=== PATIENT | female | born 1965 | race Caucasian/White ===

== ENCOUNTER 2021-07-18 04:25 | Day surgery (SDC) | payer BC, OTHER ==
[2021-07-17 11:04] VITALS: BMI 31.3
[2021-07-18] MEDS ORDERED: LIDOCAINE HCL 1%, 10 MG/ML (20ML VIAL) ONE (07:14)
[2021-07-18] MEDS ORDERED: DEXAMETHASONE SOD PHOSPHATE 10 MG/1 ML VIAL ONE (07:14)
[2021-07-18] MEDS ORDERED: BUPIVACAINE HCL/PF 0.5% (5MG/ML) 10 ML VIAL ONE (07:14)
[2021-07-18] MEDS ORDERED: GENTAMICIN SO4 80 MG/2 ML VIAL ONE (07:17)
[2021-07-18] MEDS ORDERED: MIDAZOLAM HCL 2 MG/2 ML SINGLE DOSE VIAL ONE (07:36)
[2021-07-18] MEDS ORDERED: ceFAZolin 2 GRAM PREMIX BAG IVPB ONE (07:53)
[2021-07-18] MEDS ORDERED: LIDOCAINE HCL 1%, 10 MG/ML (20ML VIAL) INF ONE (07:58)
[2021-07-18] MEDS ORDERED: BUPIVACAINE HCL/PF 0.5% (5MG/ML) 10 ML VIAL IJ ONE ×2 (07:58→08:11)
[2021-07-18] MEDS ORDERED: DEXAMETHASONE SOD PHOSPHATE 4 MG/1 ML VIAL IVPUSH ONE (08:12)
[2021-07-18] MEDS ORDERED: GENTAMICIN SO4 80 MG/2 ML VIAL IVPB ONE (08:49)
[2021-07-18] MEDS ORDERED: ONDANSETRON 4 MG/2 ML VIAL IVPUSH PRN (09:12)
[2021-07-18] MEDS ORDERED: oxyCODONE HCL 5 MG TABLET PO PRN ×2 (09:12)
[2021-07-18] MEDS ORDERED: ACETAMINOPHEN 1000 MG/100 ML BAG IVPB PRN (09:13)
[2021-07-18] MEDS ORDERED: LACTATED RINGERS SOLUTION 1,000 ML IV SCH (09:15)
[2021-07-18] MEDS ORDERED: ACETAMINOPHEN INJECTION 100 ML IVPB ONE (09:28)
[2021-07-18 10:51] VITALS: PULSE 72; TEMP 97.5
[2021-07-18 11:22] VITALS: BP 146/65
== END 2021-07-18 11:20 | disposition home or self-care (01) ==
LOC: JASU-SURG 04:25
PROVIDERS: ATTEND Podiatrist Foot Surgery
PROC: 0QSN04Z Reposition Right Metatarsal with Internal Fixation Device, Open Approach (ICD-10-PCS; principal; 2021-07-18 07:30)
PROC: 0SRP0JZ Replacement of Right Toe Phalangeal Joint with Synthetic Substitute, Open Approach (ICD-10-PCS; 2021-07-18 07:30)
DX: M20.11 Hallux valgus (acquired), right foot (principal); M20.41 Other hammer toe(s) (acquired), right foot
CPT/HCPCS: 73630-TC-RT-FY; 88304-TC; 88311-TC; 94760; J1100